=== PATIENT | female | born 1995 | race Two or more races ===

== ENCOUNTER 2022-01-14 14:38 | Inpatient (IN) | payer OTHER ==
[~2022-01-14] VITALS: Ht 162.6 cm; Wt 54.7 kg
[2022-01-14] MEDS ORDERED: [UNRECOGNIZED DRUG - OTHER] PO (15:33)
[2022-01-14] MEDS ORDERED: PROP20TA18 PO (15:33)
[2022-01-14] MEDS: LORazepam 1 MG TABLET PO ONE ×2 (15:44→16:11)
[2022-01-14] MEDS ORDERED: DIAZEPAM 5 MG/ML 2 ML SYRINGE ONE (16:14)
[2022-01-14] MEDS ORDERED: HALOPERIDOL LACTATE 5 MG/ML VIAL ONE (16:14)
[2022-01-14] MEDS ORDERED: DiphenhydrAMINE HCL 50 MG/ML VIAL ONE (16:14)
[2022-01-14] MEDS ORDERED: HALOPERIDOL LACTATE 5 MG/ML VIAL IM ONE ×2 (16:15→17:30)
[2022-01-14] MEDS ORDERED: DiphenhydrAMINE HCL 50 MG/ML VIAL IM ONE (16:15)
[2022-01-14] MEDS ORDERED: DIAZEPAM 5 MG/ML 2 ML SYRINGE IM ONE (16:15)
[2022-01-14] MEDS ORDERED: LORazepam 2 MG/ML VIAL IM ONE (17:30)
[2022-01-14 18:20] LABS: BASOPHILS % (AUTO) 0.2 % (0.0-2.0); EOSINOPHILS % (AUTO) 0.6 % (1.0-6.0); HEMATOCRIT 39.1 % (36-46); HEMOGLOBIN 12.7 g/dL (12.0-16.0); LYMPHOCYTES % (AUTO) 27.4 % (22.0-44.0); MEAN CORPUSCULAR HEMOGLOBIN 26.7 pg (26.0-34.0); MEAN CORPUSCULAR HGB CONC 32.6 G/dL (31.0-37.0); MEAN CORPUSCULAR VOLUME 82 fL (80-100); MONOCYTES # (AUTO) 0.6 K/uL (0.1-1.0); NEUTROPHILS # (AUTO) 4.5 K/uL (1.8-7.7); NEUTROPHILS % (AUTO) 62.8 % (40.0-70.0); PLATELET COUNT (AUTO) 251 K/uL (150-450); RED BLOOD CELL COUNT(AUTO) 4.77 MIL/uL (4.00-5.20); RED CELL DISTRIBUTION WIDTH 14.6 % (11.5-14.5)
[2022-01-14 18:35] LABS: ANION GAP 10 mmol/L (8-16); CALCIUM, TOTAL 9.2 mg/dL (8.8-10.5); CARBON DIOXIDE 25 mmol/L (22-29); CHLORIDE 109 mmol/L (98-107); GLOMERULAR FILTR. RATE CALC > 60 mL/min (>60); GLUCOSE,RANDOM 82 mg/dL (70-110); POTASSIUM 3.4 mmol/L (3.5-5.1); SODIUM SERUM 144 mmol/L (136-145); UREA NITROGEN, BLOOD 8 mg/dL (7-18)
[2022-01-14 18:41] LABS: ALANINE AMINOTRANSFERASE 31 U/L (12-78); ALBUMIN 3.6 g/dL (3.4-5.0); ALKALINE PHOSPHATASE 120 U/L (46-116); ASPARTATE AMINOTRANSFERASE 27 U/L (15-37); BILIRUBIN,TOTAL 0.5 mg/dL (0.1-1.0); TOTAL PROTEIN, SERUM 6.5 g/dL (6.4-8.2)
[2022-01-14 19:04] LABS: COVID AG,FIA SOURCE NASOPHARYNGEAL
[2022-01-14] MEDS ORDERED: ZOLPIDEM TARTRATE 10 MG TABLET PO PRN (19:30)
[2022-01-14] MEDS ORDERED: LORazepam 2 MG TABLET PO PRN (19:30)
[2022-01-14] MEDS ORDERED: HALOPERIDOL 5 MG TABLET PO PRN (19:30)
[2022-01-15 00:40] VITALS: BP 94/50
[2022-01-15 08:22] VITALS: BP 118/90
[2022-01-15] MEDS ORDERED: PETROLATUM,WHITE 28 GM JELLY TP PRN (11:30)
[2022-01-15] MEDS ORDERED: ALBUTEROL SULFATE HFA 90 MCG/PUFF 8 GM INHALER IH PRN (11:30)
[2022-01-15] MEDS ORDERED: DOCUSATE SODIUM 100 MG CAPSULE PO PRN (11:30)
[2022-01-15] MEDS ORDERED: LOPERAMIDE HCL 2 MG CAPSULE PO PRN (11:30)
[2022-01-15] MEDS ORDERED: ACETAMINOPHEN 325 MG TABLET PO PRN (11:30)
[2022-01-15] MEDS ORDERED: BENZOCAINE/MENTHOL LOZENGE PO PRN (11:30)
[2022-01-15] MEDS ORDERED: MAG HYDROX/AL HYDROX/SIMETH ES 30 ML SUSPENSION UDCUP PO PRN (11:30)
[2022-01-15] MEDS ORDERED: MAGNESIUM HYDROXIDE SUSPENSION 30 ML UDCUP PO PRN (11:30)
[2022-01-15] MEDS ORDERED: ONDANSETRON HCL 4 MG TABLET PO PRN (11:30)
[2022-01-15] MEDS ORDERED: IBUPROFEN 600 MG TABLET PO PRN (11:30)
[2022-01-15] MEDS ORDERED: POTASSIUM CHLORIDE 20 MEQ ER TABLET PO ONE (11:30)
[2022-01-15] MEDS ORDERED: OMEPRAZOLE 20 MG CAPSULE PO PRN (11:30)
[2022-01-15] MEDS ORDERED: BACITRACIN 28 GM OINTMENT TP PRN (11:30)
[2022-01-15] MEDS ORDERED: CloNIDine HCL 0.1 MG TABLET PO PRN (11:30)
[2022-01-15] MEDS: DIVALPROEX SODIUM 500 MG DR TABLET PO SCH (20:50)
[2022-01-15 21:04] VITALS: BP 114/69
[2022-01-16 08:46] VITALS: BP 116/74
[2022-01-16] MEDS: DIVALPROEX SODIUM 500 MG DR TABLET PO SCH (09:02)
[2022-01-16] MEDS: RisperiDONE 1 MG TABLET PO SCH ×2 (09:02→16:06)
[2022-01-16] MEDS ORDERED: DIVA-112 PO (16:29)
== END 2022-01-16 21:15 | disposition home or self-care (01) | DRG 885 ==
LOC: EMS 14:42 → B3A 01-15 01:23
PROVIDERS: ADMIT Psychiatry & Neurology Psychiatry; ATTEND Psychiatry & Neurology Psychiatry
DX: F25.9 Schizoaffective disorder, unspecified (principal); R45.851 Suicidal ideations; F32.A Depression, unspecified; F41.9 Anxiety disorder, unspecified; K59.00 Constipation, unspecified; E87.6 Hypokalemia; E05.90 Thyrotoxicosis, unspecified without thyrotoxic crisis or storm; F17.210 Nicotine dependence, cigarettes, uncomplicated; Z79.899 Other long term (current) drug therapy; Z71.6 Tobacco abuse counseling
CPT/HCPCS: 80053; 84132; 85025; 99291; G0480; J1200; J1630; J2060